=== PATIENT | female | born 1995 | race Caucasian/White ===

== ENCOUNTER 2021-05-23 10:37 | Outpatient (CLI) | payer MEDICAID, SELFPAY ==
[2021-05-23] VITALS (8 sets, daily range): BP systolic 96–123; BP diastolic 51–73; PULSE 73–88; RESP 17; BMI 31.4
[2021-05-23 11:43] LABS: Add Urine Culture? No; Bacteria Urine 1+ /hpf; Bilirubin Urine 1+ (Negative); Blood Urine Neg (Negative); Glucose Urine UA Norm (Normal); Ketones Urine 1+ (Negative); Leukocyte Esterase Urine Negative (Negative); Nitrate Urine Negative (Negative); Protein Urine Trace (Negative); Squamous Epithelial Cell Urine 25-40 /hpf (0-5); Urine Appearance Hazy (CLEAR); Urine Color Dark Yellow (Yellow); Urobilinogen Urine 8 mg/dL (Negative); WBC Urine 0-4 /hpf (0-5); pH Urine 6 (5-7)
[2021-05-23 13:23] LABS: Nitrazine Paper, PH Negative
== END 2021-05-23 12:30 | disposition home or self-care (01) ==
LOC: OPOB 10:49 → OBGYN 10:51
PROVIDERS: PCP Family Medicine; Visit Provider Family Medicine
DX: O26.899 Other specified pregnancy related conditions, unspecified trimester (principal); Z3A.00 Weeks of gestation of pregnancy not specified; N89.8 Other specified noninflammatory disorders of vagina
CPT/HCPCS: 59025; 81001; 83986; 99211

== ENCOUNTER 2021-06-01 12:15 | Outpatient (CLI) | payer MEDICAID, SELFPAY ==
[2021-06-01 12:34] VITALS: RESP 16
[2021-06-01 12:36] VITALS: BP 121/90; PULSE 89
[2021-06-01 12:51] VITALS: BP 123/79; PULSE 90
[2021-06-01 13:06] VITALS: BP 125/83; PULSE 100
[2021-06-01 13:21] VITALS: BP 138/93; PULSE 96
--- NOTE | 2021-06-01 13:40 | PC.NURSE ---
Promethazine 25mg PO q6h prn nausea #10 no refills called to [facility] pharmacy voicemail at this time per patient's request.
== END 2021-06-01 13:31 | disposition home or self-care (01) ==
LOC: OPOB 12:18 → OBGYN 12:21
PROVIDERS: PCP Family Medicine; Visit Provider Family Medicine
DX: O21.9 Vomiting of pregnancy, unspecified (principal); Z3A.00 Weeks of gestation of pregnancy not specified; N89.8 Other specified noninflammatory disorders of vagina
CPT/HCPCS: 59025; 99211

== ENCOUNTER 2021-06-23 22:09 | Inpatient (IN) | payer MEDICAID, SELFPAY ==
[2021-06-23] VITALS (8 sets, daily range): BP systolic 128–156; BP diastolic 79–95; PULSE 60–91; RESP 16; BMI 32.1
[2021-06-23 20:57] LABS: Nitrazine Paper, PH Negative
[2021-06-23 23:14] LABS: Basophils # 0.1 10^3/uL (0.0-0.1); Basophils % 0.6 %; Eosinophils # 0.3 10^3/uL (0.0-0.8); Eosinophils % 2.1 %; Hematocrit 32.8 % (37.0-47.0); Hemoglobin 10.5 g/dL (11.5-15.3); Lymphocytes # 2.7 10^3/uL (0.8-4.8); Lymphocytes % 19.5 %; Mean Corpuscular Hemoglobin 25.6 pg (28.0-34.0); Mean Platelet Volume 10.4 fL (7.4-10.4); Monocytes # 0.9 10^3/uL (0.2-0.9); Monocytes % 6.8 %; Neutrophils % 70.5 %; Nucleated Red Blood Cells % 0 %; Platelet Count 410 10^3/cmm (130-400); Red Cell Distribution Width 13.4 % (12.1-15.1); White Blood Count 13.9 10^3/uL (4.0-10.0)
[2021-06-23] MEDS: dextrose 5%-lactated ringers 1,000 ML 125 ML IV (23:18)
[2021-06-23] MEDS: ondansetron 2 mg/ML SDV 2 mL 4 MG IVP (23:43)
[2021-06-23] MEDS: oxytocin 30 UNIT/500 ML BAG 600 UNIT IV (23:53)
[2021-06-24] VITALS (19 sets, daily range): BP systolic 114–158; BP diastolic 54–98; PULSE 55–89; RESP 16–18; TEMP 36.5–36.8; O2SAT 96–98
--- NOTE | 2021-06-24 00:15 | PM.OPHPUD ---
Labor & Delivery H&P Update Date of Procedure: June 23, 2021 Date H&P Performed: 06/22/21 Changes to previous documentation: Cervical change noted Admission Diagnosis: 25-year-old 7 para 3-0-3-3 at 38 weeks estimated gestational age presenting in active labor Planned procedure: Spontaneous vaginal delivery Other information: The patient is a 25-year-old female who presents to the hospital in active labor. Her has been unremarkable. She is GBS negative. Her blood type is B-. She is antibody negative. Her glucose screen was within normal limits. The remainder of her labs are within normal limits. There have been no complications or problems during her . She began having contractions shortly before arriving at the hospital. She was noted to have cervical change. She was admitted for presumed vaginal delivery. Related Problem List Diagnoses (1) 38 weeks gestation of : I anticipate an unremarkable labor and delivery. (2) Active labor:
--- NOTE | 2021-06-24 00:19 | P.PCNOB_ITS ---
Delivery Note: Date of delivery: June 24, 2021 Pre-delivery diagnoses: 25-year-old 7 para 3-0-3-3 at 38 weeks estimated gestational age presenting in active labor Post-delivery diagnoses: Status post spontaneous vaginal delivery Procedure: Spontaneous vaginal delivery Findings: 150 mL Pre-Delivery Course: The patient presented to the hospital in active labor. She was noted to make cervical change. An amniotomy was performed. She progressed to complete without difficulty. Delivery: DELIVERY: The patient progressed to complete without difficulty. She delivered a male with a weight of 7 pounds 7 ounces with Apgars of 9, 9. The baby was delivered from the SIMONE position and placed on the mother's abdomen. The cord was then clamped and cut 1 minute after delivery There was no nuchal cord. There was no meconium. The placenta and 3 vessel cord were delivered intact shortly thereafter. The perineum and vaginal vault were carefully examined. No lacerations were noted. Both the mother and the baby were in stable condition. Post-Delivery Status: Good A&P Assessment and plan (1) Active labor: Status: Acute (2) 38 weeks gestation of : Status: Acute (3) Spontaneous vaginal delivery: I anticipate routine care. I am hopeful she will not require 1 more night stay in the hospital. Status: Acute Coding Level of Care Code Acute Channel Development Director for Chg Fwd Diagnoses Active labor 38 weeks gestation of Z3A.38 Spontaneous vaginal delivery O80
[2021-06-24 00:36] LABS: Adenovirus Not Detected (NOT DETECT); Chlamydia Pneumoniae Not Detected (NOT DETECT); Coronavirus 229E,HKU1,NL63,OC4 Not Detected (NOT DETECT); Human Metapneumovirus Not Detected (NOT DETECT); Human Rhinovirus/Enterovirus Not Detected (NOT DETECT); Influenza A Not Detected (NOT DETECT); Influenza A H1 Not Detected (NOT DETECT); Influenza A H1-2009 Not Detected (NOT DETECT); Influenza A H3 Not Detected (NOT DETECT); Influenza B Not Detected (NOT DETECT); Mycoplasma Pneumoniae Not Detected (NOT DETECT); Parainfluenza Virus Type 1 Not Detected (NOT DETECT); Parainfluenza Virus Type 2 Not Detected (NOT DETECT); Parainfluenza Virus Type 3 Not Detected (NOT DETECT); Parainfluenza Virus Type 4 Not Detected (NOT DETECT); Respiratory Syncytial Virus A Not Detected (NOT DETECT); Respiratory Syncytial Virus B Not Detected (NOT DETECT); SARS-COV-2 Not Detected (NOT DETECT)
[2021-06-24] MEDS: lanolin oint 7 gm 1 APPLIC TOPICAL (04:26)
[2021-06-24] MEDS: prenatal vitamin Capsule 1 CAP PO (08:55)
[2021-06-24] MEDS: docusate sodium 100 mg Capsule PO ×2 (08:55→20:29)
[2021-06-24] MEDS: ibuprofen 800 mg tablet PO ×3 (08:55→20:29)
[2021-06-24 14:45] LABS: Hemoglobin 8.8 g/dL (11.5-15.3); Mean Corpuscular HGB Conc 31.4 g/dL (30.0-36.0); Mean Corpuscular Hemoglobin 25.4 pg (28.0-34.0); Mean Corpuscular Volume 80.9 fl (81-99); Mean Platelet Volume 10.7 fL (7.4-10.4); Platelet Count 353 10^3/cmm (130-400); Red Blood Count 3.46 10^6/uL (4.1-5.3); Red Cell Distribution Width 13.5 % (12.1-15.1); White Blood Count 13.3 10^3/uL (4.0-10.0)
[2021-06-25 04:40] VITALS: BP 127/92; PULSE 67; TEMP 36.9; O2SAT 99
--- NOTE | 2021-06-25 07:24 | PM.OBGYDC ---
Discharge Providers MUSEUM DIRECTOR Date of Admission: 06/23/21 22:09 Date of Discharge: 06/25/21 Attending Provider at Admission: David Esposito MD Attending Provider at Discharge: David Esposito MD Primary Care Provider: Alexis Bueno MD Diagnoses at Discharge Discharge Diagnosis (1) Active labor: Status: Acute (2) 38 weeks gestation of : Status: Acute (3) Spontaneous vaginal delivery: Status: Acute Reason for Visit Reason for Visit: labor Hospital Course Hospital Course The patient is a 38-week patient who presented to the hospital in active labor. An amniotomy was performed. She progressed to complete and had an unremarkable delivery of a healthy appearing male . Her course was unremarkable. Her bleeding was within normal limits. Her pain was well controlled. She breast-fed well. There were no concerns. Information Peripartum Data: Delivery Method: Vaginal Physical Exam Narrative: The patient is alert. She appears comfortable. Her heart has a regular rate and rhythm with no murmurs appreciated. Lungs are clear to auscultation bilaterally. Her fundus is firm and below the umbilicus. Discharge Data Studies Completed and Pending Laboratory Results WBC 13.3 10^3/uL (4.0-10.0) H 06/24/21 13:20 RBC 3.46 10^6/uL (4.1-5.3) L 06/24/21 13:20 Hgb 8.8 g/dL (11.5-15.3) L 06/24/21 13:20 Hct 28.0 % (37.0-47.0) L 06/24/21 13:20 MCV 80.9 fl (81-99) L 06/24/21 13:20 MCH 25.4 pg (28.0-34.0) L 06/24/21 13:20 MCHC 31.4 g/dL (30.0-36.0) 06/24/21 13:20 RDW 13.5 % (12.1-15.1) 06/24/21 13:20 Plt Count 353 10^3/cmm (130-400) 06/24/21 13:20 MPV 10.7 fL (7.4-10.4) H 06/24/21 13:20 Neut % (Auto) 70.5 % 06/23/21 22:25 Lymph % (Auto) 19.5 % 06/23/21 22: [place] % (Auto) 6.8 % 06/23/21: Eos % (Auto) 2.1 % 06/23/21: Baso % (Auto) 0.6 % 06/23/21: Neut # (Auto) 9.80 10^3/uL (1.8-7.7) H 06/23/21: Lymph # (Auto) 2.7 10^3/uL (0.8-4.8) 06/23/21: [place] # (Auto) 0.9 10^3/uL (0.2-0.9) 06/23/21: Eos # (Auto) 0.3 10^3/uL (0.0-0.8) 06/23/21: Baso # (Auto) 0.1 10^3/uL (0.0-0.1) 06/23/21 22: Nucleated RBC % (auto) 0 % 06/23/21: Nucleated RBCs # 0.0 /100WBC 06/23/21 22:25 Coronavirus 229E (PCR) Not detected (NOT DETECT) 06/23/21 22:44 SARS-CoV-2 (PCR) Not detected (NOT DETECT) 06/23/21 22:44 Blood Type B Negative 06/23/21 22:25 Rho(D) Type Negative 06/23/21 22:25 Antibody Screen Negative 06/23/21 22: Screen Negative (Negative) 06/24/21 13:20 Vitals Last Vital Signs Temp 98.5 F 06/25/21 04:40 Pulse 67 06/25/21 04:40 Resp 16 06/24/21 20:19 BP 127/92 06/25/21 04:40 Pulse Ox 99 06/25/21 04:40 Discharge Plan Discharge Patient Disposition: Home Condition: Stable Prescriptions: New ibuprofen 800 mg Tablet 800 mg PO TID Qty: 45 0RF Continued [id number] 1 mg Tablet 1 tab PO DAILY 0RF Discharge Orders: Discharge Order (Routine); Ordered 06/25/21 Ordered By: David Esposito Referrals: David Esposito MD [Physician] - 6 Weeks Discharge Diet: Usual diet Discharge Activity: Limit activity as instructed Patient Instructions: Opioid Safety Discharge Attestations MUSEUM DIRECTOR Time Spent in Discharge Care*: less than 30 min Specific Discharge Activities: Specific discharge activities: educating patient and educating and/or supporting family/caregiver Coding Level of Care Code Acute Warp Tier for Chg Fwd Diagnoses Active labor 38 weeks gestation of Z3A.38 Spontaneous vaginal delivery O80
[2021-06-25] MEDS: ibuprofen 800 mg tablet PO (08:57)
[2021-06-25] MEDS: docusate sodium 100 mg Capsule PO (08:57)
[2021-06-25] MEDS: prenatal vitamin Capsule 1 CAP PO (08:57)
[2021-06-25 09:05] VITALS: BP 135/71; PULSE 65; TEMP 36.9; O2SAT 99
[2021-06-25 09:20] VITALS: BP 135/71; PULSE 65; TEMP 36.9; O2SAT 99
== END 2021-06-25 09:20 | disposition home or self-care (01) | DRG 807 ==
LOC: OPOB 22:21 → OBGYN 22:21
PROVIDERS: Admitting Provider Family Medicine; PCP Family Medicine; Visit Provider Family Medicine
DX: O80 Encounter for full-term uncomplicated delivery (principal); Z37.0 Single live birth; Z3A.38 38 weeks gestation of pregnancy
CPT/HCPCS: 12345; 36415; 59025; 59409; 83986; 85025; 85027; 85460; 86850; 86900; 87635; 90384; 99211; J2405